=== PATIENT | female | born 1950 | race Caucasian/White ===

== ENCOUNTER 2017-12-12 13:15 | Day surgery (SDC) | payer OTHER | END 2017-12-12 22:46 | LOC: RAD 13:15 | PROVIDERS: Radiology Diagnostic Radiology | PROC: BR20YZZ Computerized Tomography (CT Scan) of Cervical Spine using Other Contrast (ICD-10-PCS; principal; 2017-12-12 15:00) | DX: M47.12 Other spondylosis with myelopathy, cervical region (principal); E11.9 Type 2 diabetes mellitus without complications; E07.9 Disorder of thyroid, unspecified; Z87.891 Personal history of nicotine dependence; M48.02 Spinal stenosis, cervical region | CPT/HCPCS: 62302; 72126; Q9967 ==

== ENCOUNTER 2019-03-27 11:21 | Emergency (ER) | payer OTHER ==
[~2019-03-27] VITALS: Ht 152.4 cm; Wt 105.2 kg
== END 2019-03-27 11:44 ==
LOC: ER 11:21
DX: Z77.098 Contact with and (suspected) exposure to other hazardous, chiefly nonmedicinal, chemicals (principal); Z87.891 Personal history of nicotine dependence; Z88.8 Allergy status to other drugs, medicaments and biological substances; Z88.5 Allergy status to narcotic agent
CPT/HCPCS: 99282

== ENCOUNTER 2019-09-25 18:02 | Inpatient (IN) | payer OTHER ==
[~2019-09-25] VITALS: Ht 152.4 cm; Wt 109.3 kg
[2019-09-25 18:57] LABS: Alanine Aminotransfer (ALT/SGP 27 U/L (12-78); Albumin, Blood 3.9 g/dL (3.4-5.0); Albumin/Globulin Ratio 1.1 (0.8-1.8); Alk Phos 50 U/L (50-136); Anion Gap 8 mmol/L (6-16); Aspartate Aminotrans (AST/SGOT 24 U/L (12-37); Bilirubin, Total 0.7 mg/dL (0.1-1.0); Blood Urea Nitrogen 27 mg/dL (8-24); Bun/Creatinine Ratio 13.2 (12.0-20.0); CO2, Blood 25 mmol/L (21-32); Calcium, Blood 9.9 mg/dL (8.5-10.1); Chloride, Blood 104 mmol/L (98-108); Creatinine, Blood 2.04 mg/dL (0.40-1.00); Globulin, Blood 3.6 g/dL (2.2-4.0); Glomerular Filtration Rate 26 (60-); Glucose, Blood 123 mg/dL (70-99); Potassium, Blood 3.7 mmol/L (3.5-5.5); Sodium, Blood 137 mmol/L (136-145); Total Protein, Blood 7.5 g/dL (6.4-8.2); Troponin I <0.015 ng/mL (0.000-0.040)
[2019-09-25 19:07] LABS: BASOPHILS ABSOLUTE AUTO 0.04 K/mm3 (0.00-0.23); BASOPHILS PERCENT AUTO 0 % (0-2); EOSINOPHILS ABSOLUTE AUTO 0.04 K/mm3 (0.00-0.68); EOSINOPHILS PERCENT AUTO 0 % (0-6); Hematocrit 42.5 % (33.0-51.0); Hemoglobin 13.8 g/dL (11.5-16.0); IMMATURE GRAN ABSOLUTE AUTO 0.08 K/mm3 (0.00-0.10); IMMATURE GRAN PERCENT AUTO 1 % (0-1); LYMPHOCYTES ABSOLUTE AUTO 0.83 K/mm3 (0.84-5.20); LYMPHOCYTES PERCENT AUTO 8 % (21-46); MONOCYTES PERCENT AUTO 1 % (4-13); Mean Corpuscular HGB 28.6 pg (26.0-34.0); Mean Corpuscular HGB Conc 32.5 g/dL (31.5-36.5); Mean Corpuscular Volume 88 fL (80-100); Mean Platelet Volume 10.5 fL (9.1-12.4); NEUTROPHILS ABSOLUTE AUTO 9.92 K/mm3 (1.96-9.15); NEUTROPHILS PERCENT AUTO 90 % (41-73); Platelet Count 191 K/mm3 (150-400); RDW Coefficient Variation 13.2 % (11.7-14.2); RDW Standard Deviation 42.3 fL (35.1-46.3); Red Blood Cell Count 4.83 M/mm3 (3.80-5.20); White Blood Cell Count 11.01 K/mm3 (4.00-11.30)
[2019-09-25 20:43] LABS: Source, Urine Clean Catch
[2019-09-25 20:45] LABS: Bilirubin, Urine Neg (Neg); Blood, Urine 4+ (Neg); Glucose Qualitative, Urine Neg (Neg); Ketones, Urine Neg (Neg); Leukocyte Esterase, Urine 1+ (Neg); Nitrite, Urine Neg (Neg); Protein, Urine 3+ (Neg); Urobilinogen, Urine NORM (Normal)
[2019-09-25 20:51] LABS: Appearance, Urine Hazy (Clear); Color, Urine Pale Yellow (P-Yellow)
[2019-09-25 20:52] LABS: White Blood Cells, Urine TNTC /hpf (0-5)
[2019-09-25 20:53] LABS: Bacteria Few /hpf; Squamous Epithelial Cells Few /hpf (Few)
[2019-09-25] MEDS ORDERED: LOSARTAN-HCTZ1 EAC2 PO (21:51)
[2019-09-25] MEDS ORDERED: FURO40 PO (21:51)
[2019-09-25] MEDS ORDERED: ASPI81CH PO (21:52)
[2019-09-25] MEDS ORDERED: POTCHL20ER PO (21:52)
[2019-09-25] MEDS ORDERED: Pravachol40 MG PO (21:52)
[2019-09-25] MEDS ORDERED: VITAMIN D32000 UNI3 PO (21:53)
[2019-09-25] MEDS ORDERED: Vitamin B-121000 MCG PO (21:53)
[2019-09-26] MEDS ORDERED: ZOLOFT50 MG PO (01:15)
[2019-09-26] MEDS ORDERED: INSULANPEN SC (01:17)
[2019-09-26] MEDS ORDERED: Humalog100 UNIT/1 SC (01:19)
[2019-09-26] MEDS ORDERED: LEVO-T125 MCG PO (01:24)
[2019-09-26 03:42] LABS: Hematocrit 36.3 % (33.0-51.0); Hemoglobin 12.1 g/dL (11.5-16.0); Mean Corpuscular HGB 28.8 pg (26.0-34.0); Mean Corpuscular HGB Conc 33.3 g/dL (31.5-36.5); Mean Corpuscular Volume 86 fL (80-100); Platelet Count 189 K/mm3 (150-400); RDW Coefficient Variation 13.2 % (11.7-14.2); RDW Standard Deviation 41.3 fL (35.1-46.3); White Blood Cell Count 19.59 K/mm3 (4.00-11.30)
[2019-09-26 03:59] LABS: Bilirubin, Total 0.4 mg/dL (0.1-1.0); Calcium, Blood 8.8 mg/dL (8.5-10.1); Creatinine, Blood 2.91 mg/dL (0.40-1.00); Potassium, Blood 3.4 mmol/L (3.5-5.5)
--- NOTE | 2019-09-26 04:50 | NUR ---
END OF SHIFT SUMMARY PT AXO AND TALKING WITH STAFF T/O THE NIGHT. CARDIZEM GTT CONTINUE TO INFUSE @ 10. VSS. PT'S LOWER BACK PAIN HAS BEEN AN ISSUE. PT AND THIS RN WALKED AROUNBD UNIT MULTIPLE TIMES, TRIED HEATING PAD, SITTING IN CHAIR, ETC. PT'S PAIN PRESENTS DEBILITATING TO PT. CALLED, PERCOCET ORDERED, POST MEDICATION ADMINISTRATION PT SLEPT SOUNDLY WITH BIPAP ON FOR ALMOST 4 HOURS. PT SNACKS ALOT T/O THE NIGHT AND STATES HE NORMALLY DOESN'T SLEEP FOR MORE THAN AN HOUIR OR SO AT A TIME. PT CONTINUES IN AFIB/FLUTTER. MANY DISCUSSIONS HAD REGARDING ETOH USE AND COMMUNITY PROGRAMS. PT ACCEPTING OF THIS. WILL CONTINUE TO MONITOR UNTIL SHIFT CHANGE.
[2019-09-26] MEDS ORDERED: CALC.25 PO (11:02)
[2019-09-26] MEDS ORDERED: GABA300 PO (11:03)
[2019-09-26] MEDS ORDERED: GLIP5 PO (11:07)
[2019-09-26 15:34] LABS: Bun/Creatinine Ratio 13.2 (12.0-20.0); Creatinine, Blood 2.5 mg/dL (0.40-1.00); Potassium, Blood 4.4 mmol/L (3.5-5.5)
--- NOTE | 2019-09-26 16:55 | NUR ---
SHIFT SUMMARY PT A&Ox4; CALM AND COOPERATIVE WITH CARE. PT UP IN CHAIR FOR MAJORITY OF SHIFT WITH 1 PERSON ASSIST. PT DENIES PAIN, SOB, CHEST PAIN/PRESSURE, NAUSEA AND DIZZINESS T/O SHIFT. PT STATES ON 2L O2 VIA NC THIS AM, TITRATED TO RA DURING SHIFT. PT RECEIVING NS AT 150. VSS. VSS. NO OTHER ACUTE CHANGES NOTED DURING SHIFT. WILL CONTINUE TO MONITOR UNIL REPORT GIVEN TO ONCOMING RN.
[2019-09-27 03:27] LABS: BASOPHILS ABSOLUTE AUTO 0.05 K/mm3 (0.00-0.23); BASOPHILS PERCENT AUTO 0 % (0-2); EOSINOPHILS ABSOLUTE AUTO 0.15 K/mm3 (0.00-0.68); EOSINOPHILS PERCENT AUTO 1 % (0-6); Hematocrit 32.5 % (33.0-51.0); Hemoglobin 10.9 g/dL (11.5-16.0); IMMATURE GRAN ABSOLUTE AUTO 0.24 K/mm3 (0.00-0.10); IMMATURE GRAN PERCENT AUTO 2 % (0-1); LYMPHOCYTES ABSOLUTE AUTO 0.63 K/mm3 (0.84-5.20); LYMPHOCYTES PERCENT AUTO 4 % (21-46); MONOCYTES ABSOLUTE AUTO 0.78 K/mm3 (0.16-1.47); MONOCYTES PERCENT AUTO 5 % (4-13); Mean Corpuscular HGB 28.9 pg (26.0-34.0); Mean Corpuscular HGB Conc 33.5 g/dL (31.5-36.5); Mean Corpuscular Volume 86 fL (80-100); Mean Platelet Volume 11.2 fL (9.1-12.4); NEUTROPHILS ABSOLUTE AUTO 13.14 K/mm3 (1.96-9.15); NEUTROPHILS PERCENT AUTO 88 % (41-73); Platelet Count 135 K/mm3 (150-400); RDW Coefficient Variation 13.7 % (11.7-14.2); RDW Standard Deviation 43.1 fL (35.1-46.3); Red Blood Cell Count 3.77 M/mm3 (3.80-5.20); White Blood Cell Count 14.99 K/mm3 (4.00-11.30)
[2019-09-27 03:51] LABS: Albumin, Blood 2.6 g/dL (3.4-5.0); Albumin/Globulin Ratio 0.9 (0.8-1.8); Bilirubin, Total 0.5 mg/dL (0.1-1.0); Bun/Creatinine Ratio 14.5 (12.0-20.0); Calcium, Blood 8.4 mg/dL (8.5-10.1); Creatinine, Blood 2.2 mg/dL (0.40-1.00); Potassium, Blood 3.9 mmol/L (3.5-5.5); Total Protein, Blood 5.6 g/dL (6.4-8.2)
--- NOTE | 2019-09-27 05:19 | NUR ---
END OF SHIFT SUMMARY NO ACUTE CHANGES THIS SHIFT. VSS. PAIN TREATED WITH FENTANYL, APPEARS TO BE SUCCESFUL IN HELPING. PT HAS WORN CPAP T/O THE NIGHT. HAS BEEN NUP TO THE BATHROOM A FEW TIMES. URINE LIGHT YELLOW. 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 WILL CONTINUE TO MONITOR UNTIL SHIFT CHANGE.
--- NOTE | 2019-09-27 13:07 | NUR ---
TRANSFER NOTE PT A&Ox4; CALM AND COOPERATIVE WITH CARE. PT RESTING IN BED DURING SHIFT, UP TO SBA TO BATHROOM. UP IN CHAIR FOR MEALS. PT REPORTS HEADACHE AND MILD L FLANK PAIN AT TIMES, DENIES NEEDS FOR MEDICATIONS. PT SOB WITH EXERTION, RA AT REST AND 2L O2 VIA NC WITH ACTIVITY; PT WEARS CPAP AT NOC WITH 2L BLEED IN. PT DENIES NASUEA AND DIZZINESS. PT RECEIVING IV FLUIDS AND IV LASIX. ADRENAL ULTRA SOUND COMPLETED THIS AM. VSS. NO OTHER ACUTE CHANGES NOTED DURING SHIFT. REPORT GIVEN TO AMY RAMIREZ ASSUMING CARE OF PT. PT TRANSFERED TO ROOM 330.
--- NOTE | 2019-09-27 19:16 | NUR ---
SHIFT SUMMARY: PATIENT XFR FROM PCU-01 THIS SHIFT. PT A&O; CALM AND COOPERATIVE WITH CARE. MEDICATED FOR MILLER PAIN PER EMAR. HX HTN; BP MEDS TO BE RESTARTED / IN AM. ADMIT FOR PYLENOPHRITIS; DR BROWN FOLLOWING; REHYDRATION CONTINUING. PT UP c SBA TO BATHROOM. IV ABX CONTINUING. REPORT GIVEN TO ONCOMING RN.
[2019-09-28 04:00] LABS: BASOPHILS ABSOLUTE AUTO 0.05 K/mm3 (0.00-0.23); BASOPHILS PERCENT AUTO 0 % (0-2); EOSINOPHILS ABSOLUTE AUTO 0.27 K/mm3 (0.00-0.68); EOSINOPHILS PERCENT AUTO 2 % (0-6); Hematocrit 34.1 % (33.0-51.0); Hemoglobin 11.2 g/dL (11.5-16.0); IMMATURE GRAN ABSOLUTE AUTO 0.14 K/mm3 (0.00-0.10); IMMATURE GRAN PERCENT AUTO 1 % (0-1); LYMPHOCYTES ABSOLUTE AUTO 1.09 K/mm3 (0.84-5.20); LYMPHOCYTES PERCENT AUTO 8 % (21-46); MONOCYTES ABSOLUTE AUTO 0.69 K/mm3 (0.16-1.47); MONOCYTES PERCENT AUTO 5 % (4-13); Mean Corpuscular HGB 28.1 pg (26.0-34.0); Mean Corpuscular HGB Conc 32.8 g/dL (31.5-36.5); Mean Corpuscular Volume 86 fL (80-100); Mean Platelet Volume 11.4 fL (9.1-12.4); NEUTROPHILS ABSOLUTE AUTO 10.92 K/mm3 (1.96-9.15); NEUTROPHILS PERCENT AUTO 83 % (41-73); Platelet Count 144 K/mm3 (150-400); RDW Coefficient Variation 13.4 % (11.7-14.2); RDW Standard Deviation 42.4 fL (35.1-46.3); Red Blood Cell Count 3.99 M/mm3 (3.80-5.20); White Blood Cell Count 13.16 K/mm3 (4.00-11.30)
[2019-09-28 04:25] LABS: Albumin, Blood 2.9 g/dL (3.4-5.0); Albumin/Globulin Ratio 0.8 (0.8-1.8); Bilirubin, Total 0.5 mg/dL (0.1-1.0); Bun/Creatinine Ratio 15.2 (12.0-20.0); Calcium, Blood 8.7 mg/dL (8.5-10.1); Creatinine, Blood 1.71 mg/dL (0.40-1.00); Globulin, Blood 3.5 g/dL (2.2-4.0); Potassium, Blood 3.7 mmol/L (3.5-5.5); Total Protein, Blood 6.4 g/dL (6.4-8.2)
--- NOTE | 2019-09-28 05:05 | NUR ---
SHIFT SUMMARY- PT. A&OX3, PLEASANT AND COOPERATIVE WITH CARE. APPEARED TO HAVE SLEPT WELL T/O THE SHIFT. NO APPARENT DISTRESS NOTED. PT. ON RA DURING THE DAY WITH THE USE OF CPAP AT NIGHT. DENIED ANY PAIN OR DISCOMFORT DURING THE NIGHT. CALL LIGHT WITHIN REACH AND SIDE RAILS UP X2. WILL CONT TO MONITOR.
[2019-09-28] MEDS ORDERED: AMLO5 PO (13:00)
[2019-09-28] MEDS ORDERED: CIPR500 PO (13:01)
[2019-09-28] MEDS ORDERED: TAMS.4ER PO (13:01)
--- NOTE | 2019-09-28 14:30 | NUR ---
PT DISCHARGED FROM THE UNIT. IV REMOVED, DISCHARGE INSTRUCTIONS REVIEWED. MEDICATIONS FAXED. PT LEFT UNIT VIA WHEELCHAIR. DAUGHTER TO DRIVE HOME
== END 2019-09-28 14:15 | disposition home or self-care (01) | DRG 690 ==
LOC: ER 18:02 → PCU 23:39 → MEDS 09-26 00:50 → PCU 09-26 00:50 → MEDS 09-27 12:30 → ENPENDDIS 09-28 11:27 → MEDS 09-28 14:15
PROVIDERS: Emergency Medicine; Internal Medicine; ADMIT Internal Medicine
DX: N13.6 Pyonephrosis (principal); N12 Tubulo-interstitial nephritis, not specified as acute or chronic; E11.22 Type 2 diabetes mellitus with diabetic chronic kidney disease; N18.3 Chronic kidney disease, stage 3 (moderate); I12.9 Hypertensive chronic kidney disease with stage 1 through stage 4 chronic kidney disease, or unspecified chronic kidney disease; E86.0 Dehydration; G47.33 Obstructive sleep apnea (adult) (pediatric); E78.5 Hyperlipidemia, unspecified; E66.9 Obesity, unspecified; Z68.39 Body mass index [BMI] 39.0-39.9, adult; Z79.82 Long term (current) use of aspirin; Z87.891 Personal history of nicotine dependence
CPT/HCPCS: 36415; 74176; 76770; 80048; 80053; 81001; 82947; 83690; 84484; 85025; 85027; 87077; 87086; 87186; 93005; 93010; 94660; 94762; 96361; 96365; 96375; 99285-25; A9270; A9270-GY; J0696; J1644; J1650; J1940; J2405; J3010; J7030

== ENCOUNTER → 2020-05-17 | Outpatient (CLI) | payer OTHER ==
[~2020-05-17] MED LIST: AMLO5 PO; ASPI81CH PO; CALC.25 PO; CIPR500 PO; FURO40 PO; GABA300 PO; GLIP5 PO; Humalog100 UNIT/1 SC; INSULANPEN SC; LEVO-T125 MCG PO; LOSARTAN-HCTZ1 EAC2 PO; POTCHL20ER PO; Pravachol40 MG PO; TAMS.4ER PO; VITAMIN D32000 UNI3 PO; Vitamin B-121000 MCG PO; ZOLOFT50 MG PO
== END | disposition home or self-care (01) ==
LOC: PLD 14:52 → LAB SHORT 14:52
DX: D36.10 Benign neoplasm of peripheral nerves and autonomic nervous system, unspecified (principal)
CPT/HCPCS: 88305

== ENCOUNTER 2020-12-23 12:32 | Day surgery (SDC) | payer OTHER | END 2020-12-23 14:53 | disposition home or self-care (01) | LOC: ORSCSDS 12:32 | PROC: 0DJD8ZZ Inspection of Lower Intestinal Tract, Via Natural or Artificial Opening Endoscopic (ICD-10-PCS; principal; 2020-12-23) | DX: Z12.11 Encounter for screening for malignant neoplasm of colon (principal); Z86.010 Personal history of colon polyps; Z83.71 Family history of colonic polyps; Z53.9 Procedure and treatment not carried out, unspecified reason; I10 Essential (primary) hypertension; G47.33 Obstructive sleep apnea (adult) (pediatric); E11.9 Type 2 diabetes mellitus without complications; E03.9 Hypothyroidism, unspecified; E66.01 Morbid (severe) obesity due to excess calories; Z68.41 Body mass index [BMI] 40.0-44.9, adult; E78.5 Hyperlipidemia, unspecified; N18.9 Chronic kidney disease, unspecified; Z79.4 Long term (current) use of insulin; Z79.899 Other long term (current) drug therapy; Z79.82 Long term (current) use of aspirin ==

== ENCOUNTER → 2024-10-01 | Outpatient (CLI) | payer OTHER ==
[~2024-10-01] MED LIST changes: +ADVAIR HFA 230-28 GM INH; +ALBU90OI INH; +FERRIMIN 150456 MG; +INSULANI SC; +LEVO-T150 MCG PO; +LOSARTAN-HCTZ1 EAC6 PO; +MONT10T PO; +NOVOLOG100 UNIT/2 SC; +PRAVASTATIN SOD40 MG PO; +SERT50 PO
== END ==
LOC: LAB 16:29 → LAB SHORT 16:29
DX: M79.671 Pain in right foot (principal)
CPT/HCPCS: 84550

== ENCOUNTER 2024-12-28 12:20 | Inpatient (IN) | payer OTHER ==
[~2024-12-28] VITALS: Ht 152.4 cm; Wt 99.7 kg
[~2024-12-28 12:20] MED LIST changes: -FERRIMIN 150456 MG; +FERRIMIN 150456 MG PO
[2024-12-28] MEDS ORDERED: Ondansetron 4 MG SoluTab SL ONE (13:15)
[2024-12-28 13:54] LABS: BASOPHILS ABSOLUTE AUTO 0.07 K/mm3 (0.00-0.23); BASOPHILS PERCENT AUTO 1 % (0-2); EOSINOPHILS ABSOLUTE AUTO 0.08 K/mm3 (0.00-0.68); EOSINOPHILS PERCENT AUTO 1 % (0-6); Hematocrit 41.2 % (33.0-51.0); Hemoglobin 14.3 g/dL (11.5-16.0); IMMATURE GRAN ABSOLUTE AUTO 0.13 K/mm3 (0.00-0.10); IMMATURE GRAN PERCENT AUTO 1 % (0-1); LYMPHOCYTES ABSOLUTE AUTO 2.05 K/mm3 (0.84-5.20); LYMPHOCYTES PERCENT AUTO 16 % (21-46); MONOCYTES ABSOLUTE AUTO 0.86 K/mm3 (0.16-1.47); MONOCYTES PERCENT AUTO 7 % (4-13); Mean Corpuscular HGB Conc 34.7 g/dL (31.5-36.5); Mean Corpuscular Volume 81 fL (80-100); NEUTROPHILS ABSOLUTE AUTO 9.39 K/mm3 (1.96-9.15); NEUTROPHILS PERCENT AUTO 75 % (41-73); NRBC ABSOLUTE 0.00 K/mm3 (0.00-0.02); NRBC Auto 0.0 /100 WBC (0.0-0.2); Platelet Count 257 K/mm3 (150-400); RDW Coefficient Variation 13.8 % (11.7-14.2); RDW Standard Deviation 40.2 fL (35.1-46.3)
[2024-12-28 14:25] LABS: Alanine Aminotransfer (ALT/SGP 19.0 U/L (12-78); Albumin, Blood 3.7 g/dL (3.4-5.0); Albumin/Globulin Ratio 0.9 (0.8-1.8); Anion Gap 8.0 mmol/L (3-11); Aspartate Aminotrans (AST/SGOT 18.0 U/L (12-37); Bilirubin, Total 0.5 mg/dL (0.1-1.0); Blood Urea Nitrogen 38.0 mg/dL (8-24); CO2, Blood 27.0 mmol/L (21-32); Calcium, Blood 10.4 mg/dL (8.5-10.1); Chloride, Blood 105.0 mmol/L (98-108); Creatinine, Blood 2.92 mg/dL (0.40-1.00); Globulin, Blood 3.9 g/dL (2.2-4.0); Glucose, Blood 186.0 mg/dL (70-99); Potassium, Blood 4.0 mmol/L (3.5-5.5); Sodium, Blood 136.0 mmol/L (136-145); Total Protein, Blood 7.6 g/dL (6.4-8.2)
[2024-12-28] MEDS ORDERED: NiCARdipine HCL 50 MG in NS 250 ML IV SCH ×2 (17:15→22:30)
[2024-12-28] MEDS ORDERED: Ondansetron HCl 2 MG / ML 2ML Vial IV PRN (22:10)
[2024-12-28] MEDS ORDERED: NiCARdipine HCL 25 MG/10 ML (2.5MG/ML) IV SCH (22:15)
[2024-12-28 23:00] VITALS: BP 176/57
[2024-12-28 23:15] VITALS: BP 155/61
[2024-12-28 23:30] VITALS: BP 162/62
[2024-12-29] VITALS (55 sets, daily range): BP systolic 130–178; BP diastolic 50–149
[2024-12-29 03:47] LABS: BASOPHILS ABSOLUTE AUTO 0.07 K/mm3 (0.00-0.23); BASOPHILS PERCENT AUTO 1 % (0-2); EOSINOPHILS ABSOLUTE AUTO 0.03 K/mm3 (0.00-0.68); EOSINOPHILS PERCENT AUTO 0 % (0-6); Hematocrit 41.6 % (33.0-51.0); Hemoglobin 14.3 g/dL (11.5-16.0); IMMATURE GRAN ABSOLUTE AUTO 0.15 K/mm3 (0.00-0.10); IMMATURE GRAN PERCENT AUTO 1 % (0-1); LYMPHOCYTES ABSOLUTE AUTO 1.92 K/mm3 (0.84-5.20); LYMPHOCYTES PERCENT AUTO 13 % (21-46); MONOCYTES ABSOLUTE AUTO 1.18 K/mm3 (0.16-1.47); MONOCYTES PERCENT AUTO 8 % (4-13); Mean Corpuscular HGB Conc 34.4 g/dL (31.5-36.5); Mean Corpuscular Volume 81 fL (80-100); NEUTROPHILS ABSOLUTE AUTO 11.56 K/mm3 (1.96-9.15); NEUTROPHILS PERCENT AUTO 78 % (41-73); NRBC ABSOLUTE 0.00 K/mm3 (0.00-0.02); NRBC Auto 0.0 /100 WBC (0.0-0.2); Platelet Count 276 K/mm3 (150-400); RDW Coefficient Variation 13.9 % (11.7-14.2); RDW Standard Deviation 40.9 fL (35.1-46.3)
[2024-12-29 04:15] LABS: Alanine Aminotransfer (ALT/SGP 19.0 U/L (12-78); Albumin, Blood 3.6 g/dL (3.4-5.0); Albumin/Globulin Ratio 1.0 (0.8-1.8); Anion Gap 7.0 mmol/L (3-11); Aspartate Aminotrans (AST/SGOT 17.0 U/L (12-37); Bilirubin, Total 0.4 mg/dL (0.1-1.0); Blood Urea Nitrogen 39.0 mg/dL (8-24); CO2, Blood 28.0 mmol/L (21-32); Calcium, Blood 9.4 mg/dL (8.5-10.1); Chloride, Blood 103.0 mmol/L (98-108); Creatinine, Blood 3.01 mg/dL (0.40-1.00); Globulin, Blood 3.7 g/dL (2.2-4.0); Glucose, Blood 200.0 mg/dL (70-99); Magnesium, Blood 2.4 mg/dL (1.6-2.4); Phosphorus, Blood 3.1 mg/dL (2.5-4.9); Potassium, Blood 4.1 mmol/L (3.5-5.5); Sodium, Blood 134.0 mmol/L (136-145); Thyroid Stimulating Hormone 32.2 uIU/mL (0.360-4.800); Total Protein, Blood 7.3 g/dL (6.4-8.2)
[2024-12-29] MEDS ORDERED: Levothyroxine Sodium 0.15 MG Tab PO SCH (06:00)
[2024-12-29] MEDS ORDERED: Insulin Human Lispro 100 Units/ML 3ML Syringe SC SCH ×2 (07:30→08:30)
--- NOTE | 2024-12-29 07:40 | NUR ---
24HR URINE COLLECTION STARTED.
[2024-12-29] MEDS ORDERED: Heparin Sodium,Porcine 5,000 UNIT/0.5 ML SDV SC SCH (09:00)
[2024-12-29] MEDS ORDERED: Insulin Glargine-Yfgn 100 Unit/mL 3 ML SYR SC SCH (09:00)
[2024-12-29 09:16] LABS: Thyroid Stimulating Hormone 42.7 uIU/mL (0.360-4.800); Uric Acid, Blood 7.8 mg/dL (2.6-6.0)
--- NOTE | 2024-12-29 15:38 | NUR ---
SHIFT SUMMARY NEURO: ALERT AND ORIENTED X 3-4. DID NOT UTILIZE CALL LIGHT TODAY. FOLLOW COMMANDS. DROWSY BUT AROUSABLE. CARDIAC: SINUS TACHYCARDIA HR 110S. HYPOTENSIVE THIS AM. DR BILLINGSLEY NOTIFIED. NEW ORDERS RECIEVED FOR MIDODRINE. INSTUCTED MAP >60 OK UNTIL MIDODRINE IN EFFECT. SBP CURRENTLY 110S, DBP 50S. PULM: LUNGS CLEAR AND DIM IN BILATERAL POSTERIOR BASES. +SNORING WHILE SLEEPING BUT NO NOTED APNEA OR DESATS. SPO2 >92% ON RA. DENIES ANY COUGH. GI: HYPERTONIC BOWEL TONES, TENDER ABDOMEN TO PALPATION. DENIES ANY NAUSEA BUT STATES THAT HER STOMACH DOESNT FEEL RIGHT. +CONSTIPATION, BOWEL REGIMEN STARTED THIS AM WITH PO MEDS. : URINARY RETENTION, FERRO IN PLACE. IRRIGATED Q 2-4HR TODAY. URINE IS CREAMY WHITE COLOR AND THICK CAUSING TUBE TO BECOME OBSTRUCTED. DRAINING APPROPRIATELY AFTER FLUSHED. BLADDER SCAN DONE AT 1200 840ML. IRRIGATED CATHETHER - 800ML OUT. CALLED TO NOTIFY DR BILLINGSLEY. SKIN: SELINA-AREA, LABIA, GROIN FOLDS AND GLUTEAL CLEFT AREAS APPEAR DENUDED AND BRIGHT RED. CURRENLTY APPLYING BARRIER CREAM, AREAS ARE BLANCHABLE. CALLED TO DISCUSS TX WITH DR BILLINGSLEY. PT NICARDIPINE STOPPED FOR APPROX 45MIN TODAY PT RESTARTED AT 2.5MG/HR. SBP 150-160S. DENIES ANY CHEST PAIN, NAUSEA OR DIZZINESS TODAY. PT IN CONTACT WITH DAUGHTERS AND THROUGH OUT THE DAY. SHE IS THE SOLE CAREGIVER TO HER , FAMILY IS AT THEIR HOME ASSISTING WITH HIS CARE.
--- NOTE | 2024-12-29 18:18 | NUR ---
SHIFT SUMMARY NEURO: AWAKE AND ALERT X4. CALLS APPROPRIATELY AND ABLE TO MAKE HER NEEDS KNOWN. WEARS GLASSESS. CARDIAC: SBP 150-160S. ON NICARDAPINE GTT 2.5ML/HR. GTT STOPPED FOR APPORX 45MIN BUT SBP INCREASED TO ALMOST 170S. SINUS RHYTHM HR 70-80S. DENIES ANY CHEST PAIN, HEADACHE OR DIZZINESS TODAY. PULM: COARSE LLL, OTHERWISE CLEAR TO AUSCULATION. GI: ABDOMEN IS SOFT/NON TENDER WITH NORMOACTIVE BOWEL TONES. : PUREWICK IN PLACE, STARTED 24HR URINE COLLECTION AT 7:40. ON ICE IN PT ROOM. SKIN: INTACT. PT IN CONTACT WITH FAMILY MEMBERS TODAY, DAUGHTERS ASSISTING IN CARING HER HER SPOUSE AT THIS TIME SHE IS TYPICALLY HIS SOLE CAREGIVER. PT DECLINED BED BATH/LINEN CHANGE THIS AFTERNOON.
--- NOTE | 2024-12-29 18:33 | NUR ---
Pt. is awake in bed and welcomes my visit. Pt. is p[leasant. Facilitated a life review and Pt. verbalized how her has Parkinsons disease, and that she has family at the house carign for him. Pt. is a woman of jimmy and matters of jimmy and belief are considered. Pt. displayed evidence of being engaged, aware, and motivated. Prayed for the Pt. Pt. verbalized gratitude for the spiritual care visit.
[2024-12-30] VITALS (52 sets, daily range): BP systolic 104–183; BP diastolic 45–108
[2024-12-30 03:55] LABS: BASOPHILS ABSOLUTE AUTO 0.10 K/mm3 (0.00-0.23); BASOPHILS PERCENT AUTO 1 % (0-2); EOSINOPHILS ABSOLUTE AUTO 0.25 K/mm3 (0.00-0.68); EOSINOPHILS PERCENT AUTO 2 % (0-6); Hematocrit 36.2 % (33.0-51.0); Hemoglobin 12.2 g/dL (11.5-16.0); IMMATURE GRAN ABSOLUTE AUTO 0.14 K/mm3 (0.00-0.10); IMMATURE GRAN PERCENT AUTO 1 % (0-1); LYMPHOCYTES ABSOLUTE AUTO 2.73 K/mm3 (0.84-5.20); LYMPHOCYTES PERCENT AUTO 20 % (21-46); MONOCYTES ABSOLUTE AUTO 1.24 K/mm3 (0.16-1.47); MONOCYTES PERCENT AUTO 9 % (4-13); Mean Corpuscular HGB Conc 33.7 g/dL (31.5-36.5); Mean Corpuscular Volume 84 fL (80-100); NEUTROPHILS ABSOLUTE AUTO 9.10 K/mm3 (1.96-9.15); NEUTROPHILS PERCENT AUTO 67 % (41-73); NRBC ABSOLUTE 0.00 K/mm3 (0.00-0.02); NRBC Auto 0.0 /100 WBC (0.0-0.2); Platelet Count 255 K/mm3 (150-400); RDW Coefficient Variation 13.9 % (11.7-14.2); RDW Standard Deviation 42.5 fL (35.1-46.3)
[2024-12-30] MEDS ORDERED: NS 1,000 ML IV SCH ×2 (05:45→07:55)
[2024-12-30] MEDS ORDERED: Levothyroxine Sodium 0.175 MG TAB PO SCH (06:00)
--- NOTE | 2024-12-30 06:04 | NUR ---
SHIFT SUMMARY NO ACUTE CHANGES THIS SHIFT, ALERT AND ORIENTED X4, FOLLOWS COMMANDS, ABLE TO MAKE NEEDS KNOWN, SR 60-70s, SBP 150-160s MAINTAINED ON NICARDIPINE GTT PER EMAR, TMAX 99.5F, RESP EVEN AND UNLABORED ON 2LPM NC WHILE AWAKE AND PLACE ON CPAP AT HS WITH SPO2 >92%, PUREWICK IN PLACE AND PATENT, 24 HOUR COLLECTION CONTINUED THIS SHIFT WITH PT VOIDING 300 ML CLEAR YELLOW URINE, DR BROWN AT BEDSIDE AT 0530 WITH NEW ORDERS RECEIVED AND NOTIFIED OF URINE OUTPUT THIS SHIFT, PT DENIES CP OR SOB, SIDE RAILS UP X2, BED IN LOW POSITION, CALL LIGHT IN REACH
[2024-12-30 07:42] LABS: Albumin, Blood 3.0 g/dL (3.4-5.0); Anion Gap 10 mmol/L (3-11); Blood Urea Nitrogen 53 mg/dL (8-24); CO2, Blood 26 mmol/L (21-32); Calcium, Blood 9.1 mg/dL (8.5-10.1); Chloride, Blood 101 mmol/L (98-108); Creatinine, Blood 4.48 mg/dL (0.40-1.00); Glucose, Blood 95 mg/dL (70-99); Phosphorus, Blood 4.9 mg/dL (2.5-4.9); Potassium, Blood 4.1 mmol/L (3.5-5.5); Sodium, Blood 133 mmol/L (136-145)
[2024-12-30 09:16] LABS: Protein, Urine Quantitative 580.9 mg/dL (0.0-11.9)
--- NOTE | 2024-12-30 11:00 | NUR ---
AM NOTE: THIS RN ASSUMED CARE OF PT AT APPROX 0700, BEDSIDE REPORT TAKEN. PT A/OX4, ABLE TO MAKE NEEDS KNOWN TO STAFF. HR 50-60'S, SINUS RHYTHM/SB ON MONITOR. SBP 130-180'S, NICARDIPINE GTT OFF PER PARAMETERS TO KEEP SBP <190 & VERBAL ORDER FROM DR. BILLINGSLEY. PT DENIES CHEST PAIN/PRESSURE/HEADACHE/BLURRED VISION. PT TRANSITIONED FROM CPAP THIS AM TO 2L VIA NC THEN TO RA. SPO2 >90% ON RA, RESPIRATIONS EVEN & UNLABORED. AFEBRILE. 24HR URINE COMPLETED. DR. BROWN W/ ORDERS FOR IR CONSULT, DR. SELLERS NOTIFIED BY THIS RN. PUREWICK IN PLACE FOR I&O'S. BED BATH COMPLETED, PT UP TO CHAIR W/ LIFT ASSIST. TOLERATING PO INTAKE WELL. C/O PAIN/CRAMPING TO LOWER EXTREMITIES, HEATING PAD PROVIDED W/ REPORTED RELIEF. CALL LIGHT IN REACH.
--- NOTE | 2024-12-30 11:02 | NUR ---
Pt. is awake in a recliner when she welcomes my visit. Pt. is pleasant. Facilitated an update. Pt. verbalized that she is not aware of her progress, but displayed evidence of trust and confidence. Some pastoral care is given as is prayer. Pt. verbalized gratitude for the spiritual care visit.
--- NOTE | 2024-12-30 13:27 | NUR ---
UPDATE: DR. SELLERS TO BEDSIDE THIS AFTERNOON. ORDERS FOR PT TO BE NPO AT THIS TIME, PLAN TO GO TO [facility] LATER THIS AFTERNOON. CURRENT SBP 160'S, PT REMAINS ASYMPTOMATIC W/ THIS.
[2024-12-30] MEDS ORDERED: NS 250 ML IV ONE (16:38)
[2024-12-30] MEDS ORDERED: Verapamil HCL 2.5 MG/ML 2ML Injection ONE (16:38)
[2024-12-30] MEDS ORDERED: NS 100 ML IV ONE (16:38)
[2024-12-30] MEDS ORDERED: Nitroglycerin 2 MG/20 ML BTL ONE (16:39)
[2024-12-30] MEDS ORDERED: Heparin Sodium 1000 Units/ML 10ML MDV ONE ×2 (16:39→17:42)
[2024-12-30] MEDS ORDERED: NS 1,000 ML IV ONE ×2 (16:39→17:05)
[2024-12-30] MEDS ORDERED: Midazolam HCl 1MG / ML 2ML Vial ONE ×2 (17:05→18:21)
[2024-12-30] MEDS ORDERED: FentaNYL Citrate 50 MCG/ML 2 ML Injection ONE ×2 (17:05→18:21)
--- NOTE | 2024-12-30 18:12 | NUR ---
END OF SHIFT NOTE: PT TO SLOT ROUTER AT APPROX 1710 FOR IR PROCEDURE. NO ACUTE EVENTS THIS SHIFT. PT A/OX4, ABLE TO COMMUNICATE NEEDS. HR 50-70'S, SINUS RHYTHM ON MONITOR. SBP UP TO 180'S THIS SHIFT, NICARDIPINE REMAINS OFF PER SBP GOAL <190. PT DENIES CHEST PAIN/PRESSURE. SPO2 >90% ON ROOM AIR, DENIES SOB. PW DRAINING YELLOW URINE TO SUCTION. NO BM'S. TOLERATING PO INTAKE PRIOR TO NPO STATUS FOR PROCEDURE. NS INFUSING AT 75ML/HR. UP IN CHAIR FOR MAJORITY OF SHIFT. PT HAD FAMILY MEMBERS VISITING THIS AFTERNOON; PT REMAINS IN SLOT ROUTER AT THIS TIME.
[2024-12-31] VITALS (20 sets, daily range): BP systolic 90–202; BP diastolic 49–81
[2024-12-31 03:31] LABS: Hematocrit 32.1 % (33.0-51.0); Hemoglobin 10.8 g/dL (11.5-16.0)
[2024-12-31 03:54] LABS: Albumin, Blood 2.6 g/dL (3.4-5.0); Anion Gap 11 mmol/L (3-11); Blood Urea Nitrogen 64 mg/dL (8-24); CHOL/HDL RATIO 3.7; CO2, Blood 24 mmol/L (21-32); Calcium, Blood 7.9 mg/dL (8.5-10.1); Chloride, Blood 102 mmol/L (98-108); Cholesterol 177 mg/dL (50-200); Creatinine, Blood 6.24 mg/dL (0.40-1.00); Glucose, Blood 104 mg/dL (70-99); HDL Cholesterol 48 mg/dL (>39); LDL/HDL RATIO 1.5; Low Density Lipoprotein Chol 73 mg/dL (0-110); Magnesium, Blood 2.2 mg/dL (1.6-2.4); Phosphorus, Blood 7.0 mg/dL (2.5-4.9); Potassium, Blood 5.3 mmol/L (3.5-5.5); Sodium, Blood 132 mmol/L (136-145); Triglycerides 281 mg/dL (30-160); Very Low Density Lipoprot Chol 56 mg/dL (6-32)
[2024-12-31 12:43] LABS: Albumin, Blood 2.8 g/dL (3.4-5.0); Anion Gap 11 mmol/L (3-11); Blood Urea Nitrogen 69 mg/dL (8-24); CO2, Blood 23 mmol/L (21-32); Calcium, Blood 8.4 mg/dL (8.5-10.1); Chloride, Blood 102 mmol/L (98-108); Creatinine, Blood 6.78 mg/dL (0.40-1.00); Glucose, Blood 106 mg/dL (70-99); Phosphorus, Blood 7.1 mg/dL (2.5-4.9); Potassium, Blood 5.0 mmol/L (3.5-5.5); Sodium, Blood 131 mmol/L (136-145)
[2024-12-31 15:43] LABS: Creatinine, Blood 7.02 mg/dL (0.40-1.00)
--- NOTE | 2024-12-31 18:32 | NUR ---
PCU orders entered today for patient. Patient receptive and hapy to work with PT/ot today. Able to get OOB to chair under own power with minimal help. Patient's Creatine increased today prompting IR consult by Dr Muro for HD line placement. Patient updated on consult by RN.
[2025-01-01] VITALS (32 sets, daily range): BP systolic 76–162; BP diastolic 51–132
[2025-01-01 03:58] LABS: BASOPHILS ABSOLUTE AUTO 0.05 K/mm3 (0.00-0.23); BASOPHILS PERCENT AUTO 1 % (0-2); EOSINOPHILS ABSOLUTE AUTO 0.33 K/mm3 (0.00-0.68); EOSINOPHILS PERCENT AUTO 3 % (0-6); Hematocrit 31.3 % (33.0-51.0); Hemoglobin 10.7 g/dL (11.5-16.0); IMMATURE GRAN ABSOLUTE AUTO 0.11 K/mm3 (0.00-0.10); IMMATURE GRAN PERCENT AUTO 1 % (0-1); LYMPHOCYTES ABSOLUTE AUTO 1.36 K/mm3 (0.84-5.20); LYMPHOCYTES PERCENT AUTO 13 % (21-46); MONOCYTES ABSOLUTE AUTO 1.12 K/mm3 (0.16-1.47); MONOCYTES PERCENT AUTO 11 % (4-13); Mean Corpuscular HGB Conc 34.2 g/dL (31.5-36.5); Mean Corpuscular Volume 82 fL (80-100); NEUTROPHILS ABSOLUTE AUTO 7.45 K/mm3 (1.96-9.15); NEUTROPHILS PERCENT AUTO 71 % (41-73); NRBC ABSOLUTE 0.00 K/mm3 (0.00-0.02); NRBC Auto 0.0 /100 WBC (0.0-0.2); Platelet Count 179 K/mm3 (150-400); RDW Coefficient Variation 14.3 % (11.7-14.2); RDW Standard Deviation 43.3 fL (35.1-46.3)
[2025-01-01 04:33] LABS: Magnesium, Blood 2.4 mg/dL (1.6-2.4)
[2025-01-01 05:00] LABS: Albumin, Blood 2.7 g/dL (3.4-5.0); Anion Gap 16 mmol/L (3-11); Blood Urea Nitrogen 77 mg/dL (8-24); CO2, Blood 21 mmol/L (21-32); Calcium, Blood 8.3 mg/dL (8.5-10.1); Chloride, Blood 100 mmol/L (98-108); Creatinine, Blood 7.71 mg/dL (0.40-1.00); Glucose, Blood 46 mg/dL (70-99); Phosphorus, Blood 8.0 mg/dL (2.5-4.9); Potassium, Blood 4.4 mmol/L (3.5-5.5); Sodium, Blood 133 mmol/L (136-145)
--- NOTE | 2025-01-01 05:55 | NUR ---
SHIFT SUMMARY PT A/OX4, MAKES NEEDS KNOWN. ON ROOM AIR, SATS > 94%. WEARS CPAP AT NIGHT. REMAINED SINUS LONG T/O NIGHT WITH HR 40-50'S. BP STABLE. PUREWICK IN PLACE. PT GLUCOSE THIS AM CAME BACK cL AT 46, ORANGE JUICE AND AMP OF D50 GIVEN. PT WAS ASYMPTOMATIC. CALL LIGHT IN REACH.
--- NOTE | 2025-01-01 09:13 | NUR ---
BEDSIDE ORDERS SPOKE WITH MD MALINI AND ORDERED TO STILL GIVE PO BP MEDS THIS MORNING IF PROCEDURE WOULD BE AFTER NOON. SPOKE WITH MD SABINE AT BEDSIDE AND ORDERED TO HOLD BLOOD THINNERS, OK TO GIVE OTHER MEDS, AND TOLD PROCEDURE WOULD BE THIS AFTERNOON. CONCEDNTS DONE AT BEDSIDE WITH ALL QUESTIONS ANSWERED BY MD SABINE.
[2025-01-01 10:29] LABS: ALDOSTERONE 23.4 ng/dL; ALDOSTERONE/RENINACTIVITY CALC 18.0 ratio (<=25.0); RENIN ACTIVITY 1.3 ng/mL/hr
[2025-01-01] MEDS ORDERED: Heparin Sodium 1000 Units/ML 10ML MDV ONE (10:29)
[2025-01-01] MEDS ORDERED: NS 250 ML IV ONE (10:29)
[2025-01-01] MEDS ORDERED: Midazolam HCl 1MG / ML 2ML Vial ONE (10:56)
[2025-01-01] MEDS ORDERED: NS 500 ML IV ONE (10:56)
[2025-01-01] MEDS ORDERED: FentaNYL Citrate 50 MCG/ML 2 ML Injection ONE (10:56)
[2025-01-01] MEDS ORDERED: POTA10T PO (12:53)
[2025-01-01] MEDS ORDERED: FURO40 PO (12:53)
[2025-01-01] MEDS ORDERED: LOSARTAN POTAS100 M1 PO (12:53)
[2025-01-01] MEDS ORDERED: FentaNYL Citrate 50 MCG/ML 2 ML Injection IV PRN (16:10)
[2025-01-02] VITALS (16 sets, daily range): BP systolic 95–191; BP diastolic 52–110
[2025-01-02 02:35] LABS: CREATININE,URINE - PER 24H 576 mg/d (500-1400); CREATININE,URINE - PER VOLUME 96 mg/dL; HOURS COLLECTED 24 hr; METANEPHRINE,UR - RATIO TO CRT 52 ug/g CRT (0-300); METANEPHRINE,URINE - PER 24H 30 ug/d (36-229); METANEPHRINE,URN - PER VOLUME 50 ug/L; NORMETANEPHRINE,U - PER VOLUME 552 ug/L; NORMETANEPHRINE,URN - PER 24H 331 ug/d (95-650); NORMETANEPHRINE,URN/CRT RATIO 575 ug/g CRT (0-400)
[2025-01-02 04:02] LABS: Hematocrit 32.0 % (33.0-51.0); Hemoglobin 10.6 g/dL (11.5-16.0)
[2025-01-02 04:19] LABS: Magnesium, Blood 2.3 mg/dL (1.6-2.4)
[2025-01-02 04:20] LABS: Albumin, Blood 2.6 g/dL (3.4-5.0); Anion Gap 11 mmol/L (3-11); Blood Urea Nitrogen 53 mg/dL (8-24); CO2, Blood 27 mmol/L (21-32); Calcium, Blood 8.2 mg/dL (8.5-10.1); Chloride, Blood 98 mmol/L (98-108); Creatinine, Blood 6.44 mg/dL (0.40-1.00); Glucose, Blood 113 mg/dL (70-99); Phosphorus, Blood 6.6 mg/dL (2.5-4.9); Potassium, Blood 4.3 mmol/L (3.5-5.5); Sodium, Blood 132 mmol/L (136-145)
--- NOTE | 2025-01-02 07:36 | NUR ---
ASSUMPITION NOTE: THIS RN TO ASSUME CARE OF PT. PATIENT IS SLEEPING IN BED, EASILY AROUSABLE TO VERBAL STIMULI. PT TO GET DIALYSIS THIS MORNING. VITAL SIGNS STABLE. PATIENT DENIED ANY CHEST PAIN/PRESURE OR FEELING SHORT OF BREATH. WANTING BREAKFAST PRIOR TO LEAVING FOR DIALYSIS. HAS CALL LIGHT WITHIN REACH, BED IN LOWEST POSITION & STATING NOTHING ELSE IS NEEDED AT THIS TIME.
[2025-01-02 09:06] LABS: CORTISOL, FREE BY ED/LC-MS/MS 1.87 ug/dL
--- NOTE | 2025-01-02 10:50 | NUR ---
ARRIVAL FROM DIALYSIS: PATIENT ARRIVES BACK TO UNIT FROM DIALYSIS. VITAL SIGNS STABLE, PT HAS CALL LIGHT WITHIN REACH, BED IN LOWEST POSITION & ASKING FOR A SNACK.
--- NOTE | 2025-01-02 10:57 | NUR ---
MD ROUNDED: STEPHANIE ROUNDED ON PT AFTER FINISHING DIALYSIS. ORDERED STAT URIC ACID PT TOLD MD SHE HAS GOUT, WILL LOOK AT LABS AND START MEDS IF NEEDED. GAVE VERBAL ORDER FOR BUMEX DAILY. STATED SHE WILL GET DIALYIZED TOMORROW MOST LIKELY WELL.
--- NOTE | 2025-01-02 11:58 | NUR ---
CALLED: THIS RN CALLED MD BROWN REGARDING HER URIC ACID RESULTS HE WANTED TO BE NOTIFIED. STATED TO TELL PT WE WILL CONTINUE TO MONITOR THOSE LABS SHE HAS NO SWELLING OR REDNESS IN HER TOES
--- NOTE | 2025-01-02 13:27 | NUR ---
MD CALLED: THIS RN CALLED MD REGARDING PT'S INSULIN DOSES BEING SCHEDULED BEFORE MEALS THREE TIMES A DAY BUT PT ONLY RECEING SMALL AMOUNTS OF FAST ACTING BASED OFF AC BLOOD SUGARS. MD GAVE VERBAL ORDER TO CUT HER LONG ACTING DOSE IN HALF TO 20UNITS AND DISCONTINUE HER BEFORE MEAL DOSE AND USE ONLY LOW SLIDING SCALE QWIK PEN.
--- NOTE | 2025-01-02 18:13 | NUR ---
SHIFT SUMMARY: PATIENT IS ALERT AND ORIETNED X4 & COOPERATIVE WITH HER CARE, IS ABLE TO MAKE NEEDS KNOW & USES CALL LIGHT APPROPRIATELY. PATIENT SATTING >92% ON ROOM AIR. ON TELE SHOWING SINUS RYTHM. PATIENT GOT DIALIZED TODAY AND IS SCHEDLED TO HAVE DIALYSIS TOMORROR WELL. WAS GIVEN INSULIIN THROUGHOUT THE SHIFT PER EMAR, BASAL DOSE WAS DISCONTINUED BLOOD SUGARS TODAY WERE IN 150'S,SEE EMAR FOR CHANGES AND PREVIOUS NOTES. PLAN WILL BE LOOKING AT DISCHARGE WITHIN A COUPLE OF DAYS. FAMILY CAME TO BEDSIDE THROUGHOUT SHIFT. PT IS A 1 PERSON ASSIST WITH A FRONT WHEELED WALKER. HAS AN ARM BOARD ON THE LEFT WRIST FROM THE ACCESS SITE USED PREVIOUSLY. PT HAS CALL LIGHT WITHIN REACH, BED IN LOWEST POSITION & STATING NOTHING ELSE IS NEEDED AT THIS TIME.
[2025-01-03] VITALS (21 sets, daily range): BP systolic 102–176; BP diastolic 55–90
[2025-01-03 03:10] LABS: CREATININE, URINE - PER 24H 576 mg/d (500-1400); CREATININE, URINE - PER VOLUME 96 mg/dL; HOURS COLLECTED 24 hr; VANILLYLMANDELIC ACID -PER 24H 4.6 mg/d (0.0-7.0); VANILLYLMANDELIC ACID -PER VOL 7.7 mg/L; VANILLYLMANDELIC ACID -RAT CRT 8 mg/gCR (0-6)
[2025-01-03 04:12] LABS: BASOPHILS ABSOLUTE AUTO 0.08 K/mm3 (0.00-0.23); BASOPHILS PERCENT AUTO 1 % (0-2); EOSINOPHILS ABSOLUTE AUTO 0.29 K/mm3 (0.00-0.68); EOSINOPHILS PERCENT AUTO 4 % (0-6); Hematocrit 29.8 % (33.0-51.0); Hemoglobin 9.9 g/dL (11.5-16.0); IMMATURE GRAN ABSOLUTE AUTO 0.13 K/mm3 (0.00-0.10); IMMATURE GRAN PERCENT AUTO 2 % (0-1); LYMPHOCYTES ABSOLUTE AUTO 1.30 K/mm3 (0.84-5.20); LYMPHOCYTES PERCENT AUTO 16 % (21-46); MONOCYTES ABSOLUTE AUTO 1.01 K/mm3 (0.16-1.47); MONOCYTES PERCENT AUTO 12 % (4-13); Mean Corpuscular HGB Conc 33.2 g/dL (31.5-36.5); Mean Corpuscular Volume 84 fL (80-100); NEUTROPHILS ABSOLUTE AUTO 5.57 K/mm3 (1.96-9.15); NEUTROPHILS PERCENT AUTO 66 % (41-73); NRBC ABSOLUTE 0.00 K/mm3 (0.00-0.02); NRBC Auto 0.0 /100 WBC (0.0-0.2); Platelet Count 191 K/mm3 (150-400); RDW Coefficient Variation 14.4 % (11.7-14.2); RDW Standard Deviation 43.8 fL (35.1-46.3)
[2025-01-03 04:29] LABS: Magnesium, Blood 2.1 mg/dL (1.6-2.4)
[2025-01-03 04:30] LABS: Albumin, Blood 2.6 g/dL (3.4-5.0); Anion Gap 9 mmol/L (3-11); Blood Urea Nitrogen 44 mg/dL (8-24); CO2, Blood 29 mmol/L (21-32); Calcium, Blood 8.2 mg/dL (8.5-10.1); Chloride, Blood 96 mmol/L (98-108); Creatinine, Blood 5.82 mg/dL (0.40-1.00); Glucose, Blood 145 mg/dL (70-99); Phosphorus, Blood 7.0 mg/dL (2.5-4.9); Potassium, Blood 3.9 mmol/L (3.5-5.5); Sodium, Blood 130 mmol/L (136-145)
--- NOTE | 2025-01-03 06:08 | NUR ---
NOC SHIFT SUMMARY PT IS A+O X4 ABLE TO MAKE NEEDS KNOW, USES HER CALL LIGHT. KIND AND COOPERATIVE WITH CARES. PATIENT REMAINS RA SATTING >93%. DENIES SOB BREATHING EVEN AND UNLABORED. TELE IN PLACE SHOWING SR-SB. PT DENIES CHEST PAIN/PRESSURE. PLAN FOR DIALYSIS TODAY. PT REPORTED HAVING SOME STOMACH DISCOMFT AND WAS MEDICATED FOR NAUSEA X1. THIS HAS SINCE RESOLVED AND SHE WAS ABLE TO EVITA PO INTAKE. PT HAS NOT HAD A BM THIS SHIFT. DENIES NEEDS AT THIS TIME, BED IN LOW, CALL LIGHT IN REACH. WILL CONTINUE WITH PLAN OF CARE AND REPORT TO ONCOMING RN.
--- NOTE | 2025-01-03 08:35 | NUR ---
PATIENT CURRENTLY OUT OF ROOM FOR DIALYSIS
[2025-01-03] MEDS ORDERED: Bumetanide 0.25 MG/ML 10ML Vial IV SCH (09:00)
[2025-01-03] MEDS ORDERED: Insulin Glargine-Yfgn 100 Unit/mL 3 ML SYR SC SCH (09:00)
--- NOTE | 2025-01-03 11:20 | NUR ---
PATIENT BACK IN ROOM FOLLOWING DIALYSIS
--- NOTE | 2025-01-03 12:53 | NUR ---
MORNING NOTE THIS RN ASSUMED CARE AT APPROX 0715. PATIENT ALERT AND ORIENTED X4. COMMUNICATES NEEDS EFFECTIVELY. IS NOW MEDICAL STATUS W/O TELEMETRY. TELEMETRY SHOWING SINUS LONG PRIOR TO REMOVAL. SBP 160s-170s - MANAGING PER EMAR. HD COMPLETED THIS MORNING. DENIES CHEST PAIN, PRESSURE. ON ROOM AIR, SATs >90%. REPORTED HEADACHE POST HD - PO TYLENOL ADMINISTERED PER EMAR W/ RELIEF. PW IN PLACE FOR INCONTINENCE - DRAINING YELLOW URINE TO SUCTION. AMBULATING W/ 1P ASSIST - CURRENTLY UP IN CHAIR. BEDBATH OFFERED - DECLINED AT THIS TIME. CALL LIGHT IN REACH.
--- NOTE | 2025-01-03 16:20 | NUR ---
REPORT GIVEN TO CARLOS REYES TO ASSUME CARE FOLLOWING TRANSFER TO SURGICAL
--- NOTE | 2025-01-03 16:24 | NUR ---
PT TO ROOM 208 FROM PCU 20. HEMODIALYSIS CATHETER PRESENT R ACW. LUNGS DIMINISHED BILATERAL BASES. BELLY DISTENDED. BT POSITIVE. PT DID FIRST SESSION OF HEMODIALYSIS TODAY AND ENDORSED FEELING BETTER. ALERT AND ORIENTED X-4. IV PRESENT LEFT ARM FLUSHED AND PATENT. CHEM BG WNL. WILL CONTINUE TO MONITOR. CP RESOLVED PER PT. RADIAL SITE LEFT ARM WITH TEGADERM COVERING WNL.
--- NOTE | 2025-01-03 17:41 | NUR ---
SHIFT SUMMARY PT RESTING. IV PRESENTLY TO SL. EATING MEAL TRAY. DENIES NEEDS. WILL CONTINUE TO MONITOR.
[2025-01-04 03:54] LABS: ANTINUCLEAR AB (ANA),HEP-2,IGG <1:80 (<1:80)
--- NOTE | 2025-01-04 04:20 | NUR ---
NOC SUMMARY- PT HAD NO NEW ISSUES. PT RESTED QUIETLY WITH CPAP. PT VOIDING VIA PUREWICK DEVICE. PT SPO2 >90%. CALL LIGHT IN REACH.
[2025-01-04 05:10] LABS: Hematocrit 29.7 % (33.0-51.0); Hemoglobin 9.8 g/dL (11.5-16.0)
[2025-01-04 05:29] LABS: Albumin, Blood 2.5 g/dL (3.4-5.0); Anion Gap 6 mmol/L (3-11); Blood Urea Nitrogen 38 mg/dL (8-24); CO2, Blood 33 mmol/L (21-32); Calcium, Blood 8.9 mg/dL (8.5-10.1); Chloride, Blood 97 mmol/L (98-108); Creatinine, Blood 5.50 mg/dL (0.40-1.00); Glucose, Blood 121 mg/dL (70-99); Magnesium, Blood 2.1 mg/dL (1.6-2.4); Phosphorus, Blood 5.9 mg/dL (2.5-4.9); Potassium, Blood 3.9 mmol/L (3.5-5.5); Sodium, Blood 132 mmol/L (136-145)
--- NOTE | 2025-01-04 06:39 | NUR ---
PT DECLINES VITALS AT THIS TIME. PRIMARY RN AWARE.
[2025-01-04 07:18] VITALS: BP 142/57
--- NOTE | 2025-01-04 09:10 | NUR ---
OCC THERAPY IN WITH PT.
[2025-01-04 11:47] LABS: HEPATITIS B SURFACE ANTIBODY <3.10 IU/L
[2025-01-04 13:34] LABS: HBV CORE ANTIBODIES,TOTAL Negative (Negative)
[2025-01-04 15:05] VITALS: BP 160/66
--- NOTE | 2025-01-04 17:19 | NUR ---
SUMMARY NO ACUTE CHANGES T/O SHIFT. PT WORKED WITH THERAPY AND SAT UP IN CHAIR FIRST PART OF SHIFT. HAS BEEN RESTING IN BED T/O AFTERNOON. FAMILY BEDSIDE AT THIS TIME. CALL LIGHT IN REACH.
[2025-01-04 19:02] VITALS: BP 139/54
--- NOTE | 2025-01-04 21:45 | NUR ---
ASSUMED CARE OF PT. PT RESTING IN BED. DENIES NEED.
[2025-01-05] VITALS (15 sets, daily range): BP systolic 100–176; BP diastolic 59–92
[2025-01-05 04:30] LABS: Hematocrit 30.2 % (33.0-51.0); Hemoglobin 10.4 g/dL (11.5-16.0)
--- NOTE | 2025-01-05 05:00 | NUR ---
SUMMARY PT HAS NO ACUTE CHANGES.APPEARED TO SLEEP QUIETLY.
--- NOTE | 2025-01-05 08:51 | NUR ---
PT TO DIAYLSIS AT 0810
[2025-01-05 12:07] LABS: Albumin, Blood 2.8 g/dL (3.4-5.0); Anion Gap 13 mmol/L (3-11); Blood Urea Nitrogen 53 mg/dL (8-24); CO2, Blood 30 mmol/L (21-32); Calcium, Blood 9.3 mg/dL (8.5-10.1); Chloride, Blood 98 mmol/L (98-108); Creatinine, Blood 5.90 mg/dL (0.40-1.00); Glucose, Blood 127 mg/dL (70-99); Magnesium, Blood 2.1 mg/dL (1.6-2.4); Phosphorus, Blood 6.5 mg/dL (2.5-4.9); Potassium, Blood 3.9 mmol/L (3.5-5.5); Sodium, Blood 137 mmol/L (136-145)
--- NOTE | 2025-01-05 12:13 | NUR ---
Pt. is awake and sitting in a chair when she welcomes my visit. Pt. is pleasant but displays evidence of being tired after her dialysis today. Facilitated an update. Pt. verbalized expectations that she would have outpatient dialysis for some time. Prayed with the Pt. Pt. verbalized gratitude for the spiritual care visit.
[2025-01-05] MEDS ORDERED: BUME2 PO (15:33)
[2025-01-05] MEDS ORDERED: GABA100 PO (15:33)
[2025-01-05] MEDS ORDERED: NOVOLOG FL100 UNIT/3 (15:37)
[2025-01-05] MEDS ORDERED: BASAGLAR K100 UNIT/3 SC (15:45)
[2025-01-05] MEDS ORDERED: EUTHYROX175 MCG PO (15:45)
[2025-01-05] MEDS ORDERED: AMLO5 PO (15:47)
[2025-01-05] MEDS ORDERED: ASPI81CH PO (15:47)
[2025-01-05] MEDS ORDERED: CARV6.25 PO (15:48)
[2025-01-05] MEDS ORDERED: HYDRA50 PO (15:49)
[2025-01-05] MEDS ORDERED: CATAPRES0.1 MG PO (15:49)
[2025-01-05] MEDS ORDERED: CLOP75 PO (15:49)
--- NOTE | 2025-01-05 17:00 | NUR ---
SUMMARY NO ACUTE CHANGES THIS SHIFT. PT HAD DIALYSIS THIS AM. GETTING UP TO BSC TO VOID. USES CALL LIGHT APPROPRIATELY. HAD DC ORDERS, FAMILY DISTRESSED, STATING NOT ABLE TO CARE FOR HER AT HOME AT THIS TIME. DC PUT ON HOLD UNTIL TOMORROW WHEN PT WILL EITHER DC HOME OR TO SNF. PT STATING, AT THIS TIME, PLANNING ON DC'ING TO SNF.
[2025-01-05 21:05] LABS: GBM, IGG MULTIPLEX BEAD ASSAY 0 AU/mL (0-19); MYELOPEROXIDASE (MPO) AB,IGG 0 AU/mL (0-19); SERINE PROTEINASE 3 PR3 AB,IGG 0 AU/mL (0-19)
[2025-01-06] VITALS (13 sets, daily range): BP systolic 142–170; BP diastolic 61–89
--- NOTE | 2025-01-06 05:31 | NUR ---
SHIFT SUMMARY NO ACUTE CHANGES OVERNIGHT. S/P R CHEST WALL PERMACATH PLACEMENT. DRESSING C/D/I c SCANT DRIED SANGUINEOUS DRAINAGE. VSS. TOLERATING DIET. VOIDING. AMBULATES USING FWW c SBA. REPORTS PAIN TOLERABLE. ANTICIPATED DISCHARGE TO REHAB TODAY. CALL LIGHT IN REACH, BED IN LOWEST POSITION. WILL REPORT TO DAY RN.
[2025-01-06 05:34] LABS: Hematocrit 31.6 % (33.0-51.0); Hemoglobin 10.4 g/dL (11.5-16.0)
[2025-01-06 06:08] LABS: Albumin, Blood 2.8 g/dL (3.4-5.0); Anion Gap 10 mmol/L (3-11); Blood Urea Nitrogen 30 mg/dL (8-24); CO2, Blood 28 mmol/L (21-32); Calcium, Blood 9.0 mg/dL (8.5-10.1); Chloride, Blood 98 mmol/L (98-108); Creatinine, Blood 4.14 mg/dL (0.40-1.00); Glucose, Blood 134 mg/dL (70-99); Magnesium, Blood 2.0 mg/dL (1.6-2.4); Phosphorus, Blood 4.8 mg/dL (2.5-4.9); Potassium, Blood 3.5 mmol/L (3.5-5.5); Sodium, Blood 132 mmol/L (136-145)
[2025-01-06] MEDS ORDERED: Polyethylene Glycol 3350 17 gm PO ONE (15:00)
[2025-01-06] MEDS ORDERED: Polyethylene Glycol 3350 17 gm PO PRN (15:00)
[2025-01-06 16:42] LABS: ALBUMIN %,URINE 55.6 %; ALPHA-1 %,URINE 6.4 %; ALPHA-2 %,URINE 11.6 %; BETA GLOBULIN %,URINE 13.4 %; GAMMA GLOBULIN %,URINE 13.0 %; HOURS COLLECTED Not Provided hr; PARAPROTEIN %,URINE 0.0 %
--- NOTE | 2025-01-06 16:52 | NUR ---
SHIFT SUMMARY PATIENT IS AOX4, DIALYSIS THIS MORNING. VSS. PATIENT TOLERATING PO INTAKE. SBA FOR TRANSFERS. PATIENT DID NOT REQUIRE INSULIN SLIDING SCALE TODAY. DENIES N/V, SOB, N/T. ABLE TO MAKE NEEDS KNOWN. CALL LIGHT IN REACH.
[2025-01-07 04:41] LABS: Hematocrit 29.9 % (33.0-51.0); Hemoglobin 10.1 g/dL (11.5-16.0)
[2025-01-07 04:57] LABS: Magnesium, Blood 1.8 mg/dL (1.6-2.4)
[2025-01-07 04:58] LABS: Albumin, Blood 2.9 g/dL (3.4-5.0); Anion Gap 8 mmol/L (3-11); Blood Urea Nitrogen 28 mg/dL (8-24); CO2, Blood 30 mmol/L (21-32); Calcium, Blood 9.2 mg/dL (8.5-10.1); Chloride, Blood 98 mmol/L (98-108); Creatinine, Blood 3.92 mg/dL (0.40-1.00); Glucose, Blood 145 mg/dL (70-99); Phosphorus, Blood 4.0 mg/dL (2.5-4.9); Potassium, Blood 3.3 mmol/L (3.5-5.5); Sodium, Blood 133 mmol/L (136-145)
--- NOTE | 2025-01-07 05:05 | NUR ---
SHIFT SUMMARY NO ACUTE CHANGES OVERNIGHT. VSS, CPAP & CONT BIOX IN USE WHILE ASLEEP. S/P R CHEST WALL PERMACATH PLACEMENT. DRESSING C/D/I c SCANT DRIED SANGUINEOUS DRAINAGE. TOLERATING DIET. VOIDING. AMBULATES USING FWW c SBA. REPORTS HEADACHE PAIN TOLERABLE. ANTICIPATED DISCHARGE TO SNF. CALL LIGHT IN REACH, BED IN LOWEST POSITION. WILL REPORT TO DAY RN.
[2025-01-07 06:13] VITALS: BP 140/43
[2025-01-07 07:14] VITALS: BP 145/69
--- NOTE | 2025-01-07 10:40 | NUR ---
Pt. is awake and sitting in a chair when she welcomes my visit. Pt. is pleasant and welcomes my visit. Facilitated an update. Pt. verbalized that it was her expectation that she was only waiting for an open bed at a rehab facility. Considered matters of jimmy, Pt. verbalized "I know I am in God's hands". Faciliiated some further family life review and prayed with the Pt. Pt. verbalized gratitude for the spiritual care visits.
--- NOTE | 2025-01-07 13:45 | NUR ---
PT EXPRESSES CONCERN OVER SMALL AREA OF SWELLING TO ABDOMEN AT HEPARIN INJECTION SITE. SMALL AMT TO PINPOINT SPOTTING TO GOWN. WILL HAVE MD DE LOS SANTOS ON NEXT ROUNDS.
[2025-01-07 14:28] VITALS: BP 128/101
--- NOTE | 2025-01-07 16:00 | NUR ---
ASSUMED CARE OF PATIENT AT THIS TIME.
--- NOTE | 2025-01-07 18:35 | NUR ---
PT HAS BEEN STABLE SINCE THIS RN ASSUMED CARE. DIALYSIS CATH TO [facility] WNL. DIALYSIS TX YESTERDAY. PT BLOOD SUGARS STABLE. EATING AND DRINKING WELL. INDEP TO BATHROOM. DENIES PAIN. IV S.L. MULTIPLE BRUISING SITES AND SPOTTING ON MID ABD HEPARIN SITE. DRESSING PLACED NEEDED. PLAN HH AT DISCHARGE.
[2025-01-07 19:31] VITALS: BP 160/51
[2025-01-08] VITALS (17 sets, daily range): BP systolic 100–178; BP diastolic 60–111
--- NOTE | 2025-01-08 04:13 | NUR ---
SHIFT SUMMARY A/OX4, IND IN ROOM. DENIES PAIN OR SOB. ON ROOM AIR. DIALYSIS CATH TO [facility] CDI. GAUZE DRESSING TO ABD. VSS, NO ACUTE CHANGES AT THIS TIME
[2025-01-08 04:38] LABS: Hematocrit 29.4 % (33.0-51.0); Hemoglobin 9.8 g/dL (11.5-16.0)
[2025-01-08 05:06] LABS: Albumin, Blood 2.9 g/dL (3.4-5.0); Anion Gap 10 mmol/L (3-11); Blood Urea Nitrogen 36 mg/dL (8-24); CO2, Blood 27 mmol/L (21-32); Calcium, Blood 9.0 mg/dL (8.5-10.1); Chloride, Blood 99 mmol/L (98-108); Creatinine, Blood 4.49 mg/dL (0.40-1.00); Glucose, Blood 133 mg/dL (70-99); Magnesium, Blood 1.9 mg/dL (1.6-2.4); Phosphorus, Blood 4.5 mg/dL (2.5-4.9); Potassium, Blood 3.6 mmol/L (3.5-5.5); Sodium, Blood 132 mmol/L (136-145)
[2025-01-08] MEDS ORDERED: MELATONIN5 M1 PO (08:48)
--- NOTE | 2025-01-08 12:43 | NUR ---
DISCHARGE AFTER DIALYSIS & LUNCH, DC'd TO [facility] VIA WC. REPORT CALLED.
== END 2025-01-08 13:30 | DRG 674 ==
LOC: ER 12:20 → SURS 21:24 → ICUE 21:24 → PCU 01-01 18:00 → SURS 01-03 16:20
PROVIDERS: Internal Medicine; Internal Medicine Nephrology; Physician Assistant; ADMIT Student in an Organized Health Care Education/Training Program
PROC: 04793DZ Dilation of Right Renal Artery with Intraluminal Device, Percutaneous Approach (ICD-10-PCS; principal; 2024-12-30)
PROC: B4101ZZ Fluoroscopy of Abdominal Aorta using Low Osmolar Contrast (ICD-10-PCS; 2024-12-30)
PROC: 0JH63XZ Insertion of Tunneled Vascular Access Device into Chest Subcutaneous Tissue and Fascia, Percutaneous Approach (ICD-10-PCS; 2025-01-01)
PROC: 02HV33Z Insertion of Infusion Device into Superior Vena Cava, Percutaneous Approach (ICD-10-PCS; 2025-01-01)
PROC: B5181ZA Fluoroscopy of Superior Vena Cava using Low Osmolar Contrast, Guidance (ICD-10-PCS; 2025-01-01)
PROC: 5A1D70Z Performance of Urinary Filtration, Intermittent, Less than 6 Hours Per Day (ICD-10-PCS; 2025-01-01)
DX: N17.9 Acute kidney failure, unspecified (principal); E87.1 Hypo-osmolality and hyponatremia; I16.1 Hypertensive emergency; Z68.41 Body mass index [BMI] 40.0-44.9, adult; N18.4 Chronic kidney disease, stage 4 (severe); I12.9 Hypertensive chronic kidney disease with stage 1 through stage 4 chronic kidney disease, or unspecified chronic kidney disease; I70.1 Atherosclerosis of renal artery; E78.5 Hyperlipidemia, unspecified; G47.33 Obstructive sleep apnea (adult) (pediatric); E11.22 Type 2 diabetes mellitus with diabetic chronic kidney disease; E66.9 Obesity, unspecified; D63.1 Anemia in chronic kidney disease; R31.29 Other microscopic hematuria; E79.0 Hyperuricemia without signs of inflammatory arthritis and tophaceous disease; E03.9 Hypothyroidism, unspecified; E87.5 Hyperkalemia; R53.1 Weakness; Z99.2 Dependence on renal dialysis; Z79.51 Long term (current) use of inhaled steroids; Z79.899 Other long term (current) drug therapy; Z79.4 Long term (current) use of insulin; Z79.890 Hormone replacement therapy; Z90.49 Acquired absence of other specified parts of digestive tract; Z98.49 Cataract extraction status, unspecified eye; Z90.710 Acquired absence of both cervix and uterus; Z87.891 Personal history of nicotine dependence; Z79.82 Long term (current) use of aspirin; Z91.040 Latex allergy status; Z88.1 Allergy status to other antibiotic agents; Z88.5 Allergy status to narcotic agent; Z99.81 Dependence on supplemental oxygen
CPT/HCPCS: 36415; 71046; 71275; 76770; 76937; 80053; 80061; 80069; 82088; 82530; 82565; 82947; 83036; 83516; 83690; 83735; 83835; 84100; 84156; 84166; 84244; 84439; 84443; 84484; 84550; 84585; 85014; 85018; 85025; 86039; 86334; 86335; 86704; 87340; 93005; 93010; 93306; 93975; 94660; 94762; 96374-59; 97110; 97116; 97161; 97165; 97530; 97535; 99152; 99153; 99285-25; A9270; C1750; C1769; C1876; C1887; C1894; J1644; J1815; J2250; J2405; J3010; J7030; J7040; J7050; Q9967

== ENCOUNTER → 2025-02-09 | Outpatient (CLI) | payer OTHER ==
[~2025-02-09] MED LIST changes: +BASAGLAR K100 UNIT/3 SC; +BUME2 PO; +CARV6.25 PO; +CATAPRES0.1 MG PO; +CLOP75 PO; +EUTHYROX175 MCG PO; +GABA100 PO; +HYDRA50 PO; +LOSARTAN POTAS100 M1 PO; +MELATONIN5 M1 PO; +NOVOLOG FL100 UNIT/3; +POTA10T PO
== END | disposition home or self-care (01) ==
LOC: LAB 09:53 → LAB SHORT 09:53
DX: E03.9 Hypothyroidism, unspecified (principal)
CPT/HCPCS: 84443

== ENCOUNTER → 2025-04-10 | Outpatient (CLI) | payer OTHER ==
[~2025-04-10] MED LIST changes: +Cefpodoxime Pr200 MG PO; +ONDA4ODT MM
== END ==
LOC: LAB SHORT 14:16 → LAB 14:16
DX: E03.9 Hypothyroidism, unspecified (principal)
CPT/HCPCS: 84443

== ENCOUNTER 2025-04-22 13:28 | Emergency (ER) | payer OTHER ==
[~2025-04-22] VITALS: Ht 152.4 cm; Wt 91.6 kg
[~2025-04-22 13:28] MED LIST changes: -Cefpodoxime Pr200 MG PO; -ONDA4ODT MM
[2025-04-22 15:46] LABS: BASOPHILS ABSOLUTE AUTO 0.08 K/mm3 (0.00-0.23); BASOPHILS PERCENT AUTO 1 % (0-2); EOSINOPHILS ABSOLUTE AUTO 0.03 K/mm3 (0.00-0.68); EOSINOPHILS PERCENT AUTO 0 % (0-6); Hematocrit 44.2 % (33.0-51.0); Hemoglobin 14.4 g/dL (11.5-16.0); IMMATURE GRAN ABSOLUTE AUTO 0.13 K/mm3 (0.00-0.10); IMMATURE GRAN PERCENT AUTO 1 % (0-1); LYMPHOCYTES ABSOLUTE AUTO 1.75 K/mm3 (0.84-5.20); LYMPHOCYTES PERCENT AUTO 18 % (21-46); MONOCYTES ABSOLUTE AUTO 0.77 K/mm3 (0.16-1.47); MONOCYTES PERCENT AUTO 8 % (4-13); Mean Corpuscular HGB Conc 32.6 g/dL (31.5-36.5); Mean Corpuscular Volume 85 fL (80-100); NEUTROPHILS ABSOLUTE AUTO 6.96 K/mm3 (1.96-9.15); NEUTROPHILS PERCENT AUTO 72 % (41-73); NRBC ABSOLUTE 0.00 K/mm3 (0.00-0.02); NRBC Auto 0.0 /100 WBC (0.0-0.2); Platelet Count 230 K/mm3 (150-400); RDW Coefficient Variation 14.4 % (11.7-14.2); RDW Standard Deviation 45.2 fL (35.1-46.3)
[2025-04-22 16:01] LABS: Alanine Aminotransfer (ALT/SGP 20.0 U/L (12-78); Albumin, Blood 4.2 g/dL (3.4-5.0); Albumin/Globulin Ratio 1.1 (0.8-1.8); Anion Gap 8.0 mmol/L (3-11); Aspartate Aminotrans (AST/SGOT 13.0 U/L (12-37); Bilirubin, Total 0.4 mg/dL (0.1-1.0); Blood Urea Nitrogen 19.0 mg/dL (8-24); CO2, Blood 35.0 mmol/L (21-32); Calcium, Blood 10.3 mg/dL (8.5-10.1); Chloride, Blood 94.0 mmol/L (98-108); Creatinine, Blood 2.94 mg/dL (0.40-1.00); Globulin, Blood 3.9 g/dL (2.2-4.0); Glucose, Blood 252.0 mg/dL (70-99); Potassium, Blood 3.6 mmol/L (3.5-5.5); Sodium, Blood 133.0 mmol/L (136-145); Total Protein, Blood 8.1 g/dL (6.4-8.2)
[2025-04-22] MEDS ORDERED: NS 1,000 ML IV SCH (17:20)
[2025-04-22] MEDS ORDERED: Ondansetron HCl 2 MG / ML 2ML Vial IV ONE (17:20)
[2025-04-22] MEDS ORDERED: FentaNYL Citrate 50 MCG/ML 2 ML Injection IV ONE (17:20)
[2025-04-22 18:34] LABS: Source, Urine Clean Catch
[2025-04-22 18:37] LABS: Bilirubin, Urine Neg (Neg); Color, Urine Yellow (P-Yellow); Glucose Qualitative, Urine 2+ (Neg); Ketones, Urine Neg (Neg); Leukocyte Esterase, Urine 2+ (Neg); Protein, Urine 4+ (Neg); Specific Gravity, Urine 1.020 (1.003-1.022); Urobilinogen, Urine NORM (Normal)
[2025-04-22 19:09] LABS: Red Blood Cells, Urine 0-2 /hpf (0-2); White Blood Cells, Urine 25-50 /hpf (0-5)
[2025-04-22 19:16] VITALS: BP 193/72
[2025-04-22] MEDS ORDERED: RX Prepack 2 Tabs Ondansetron ODT 4MG UD ONE (19:25)
[2025-04-22] MEDS ORDERED: CefTRIAXone Sodium 1,000 MG in NS 100 ML IV ONE (19:25)
[2025-04-22] MEDS ORDERED: Cefpodoxime Pr200 MG PO (19:41)
[2025-04-22] MEDS ORDERED: ONDA4ODT MM (19:41)
== END 2025-04-22 20:04 | disposition home or self-care (01) ==
LOC: ER 13:28
PROVIDERS: Emergency Medicine; Physician Assistant
DX: N12 Tubulo-interstitial nephritis, not specified as acute or chronic (principal); I12.9 Hypertensive chronic kidney disease with stage 1 through stage 4 chronic kidney disease, or unspecified chronic kidney disease; E11.22 Type 2 diabetes mellitus with diabetic chronic kidney disease; N18.30 Chronic kidney disease, stage 3 unspecified; R74.8 Abnormal levels of other serum enzymes; E03.9 Hypothyroidism, unspecified; G47.33 Obstructive sleep apnea (adult) (pediatric); Z88.5 Allergy status to narcotic agent; Z87.891 Personal history of nicotine dependence; Z88.6 Allergy status to analgesic agent; Z88.1 Allergy status to other antibiotic agents; Z91.040 Latex allergy status; Z79.84 Long term (current) use of oral hypoglycemic drugs; Z79.4 Long term (current) use of insulin; Z79.890 Hormone replacement therapy; Z79.02 Long term (current) use of antithrombotics/antiplatelets; Z79.899 Other long term (current) drug therapy
CPT/HCPCS: 74176; 80053; 81001; 83690; 85025; 96374; 96375; 99284-25; A9270; J0696; J2405; J3010; J7030

== ENCOUNTER 2025-06-11 11:51 | Observation (INO) | payer OTHER ==
[~2025-06-11] VITALS: Ht 152.4 cm; Wt 94.8 kg
[~2025-06-11 11:51] MED LIST changes: +Cefpodoxime Pr200 MG PO; +ONDA4ODT MM
[2025-06-11] MEDS ORDERED: FLU VACC TS2025(65UP)/MF59C/PF 45 MCG/0.5 ML SYRINGE IM SCH (14:15)
[2025-06-11 16:03] VITALS: BP 139/105
[2025-06-11 16:13] LABS: Alanine Aminotransfer (ALT/SGP 23.0 U/L (12-78); Albumin, Blood 4.3 g/dL (3.4-5.0); Albumin/Globulin Ratio 1.2 (0.8-1.8); Anion Gap 11.0 mmol/L (3-11); Aspartate Aminotrans (AST/SGOT 14.0 U/L (12-37); Bilirubin, Total 0.5 mg/dL (0.1-1.0); Blood Urea Nitrogen 33.0 mg/dL (8-24); CO2, Blood 32.0 mmol/L (21-32); Calcium, Blood 10.6 mg/dL (8.5-10.1); Chloride, Blood 94.0 mmol/L (98-108); Creatinine, Blood 4.63 mg/dL (0.40-1.00); Globulin, Blood 3.6 g/dL (2.2-4.0); Glucose, Blood 143.0 mg/dL (70-99); Potassium, Blood 3.5 mmol/L (3.5-5.5); Sodium, Blood 133.0 mmol/L (136-145); Total Protein, Blood 7.9 g/dL (6.4-8.2)
[2025-06-11] MEDS ORDERED: Midazolam HCl 1MG / ML 2ML Vial ONE (16:45)
[2025-06-11] MEDS ORDERED: NS 500 ML IV ONE ×2 (16:45→16:47)
[2025-06-11] MEDS ORDERED: FentaNYL Citrate 50 MCG/ML 2 ML Injection ONE (16:45)
--- NOTE | 2025-06-11 16:52 | NUR ---
NOTE PATIENT REQUESTED THAT SHE CONTACT FAMILY AND WE DO NOT. SHE IS A&O4, ABLE TO MAKE HER OWN DECISION.
[2025-06-11] MEDS ORDERED: Heparin Sodium 10,000 Units/ML 1ML MDV ONE (17:24)
[2025-06-11] MEDS ORDERED: Insulin Regular 100 UNIT/ML 10ML Vial SC SCH (18:00)
--- NOTE | 2025-06-11 18:50 | NUR ---
NOTE 4X4 AND PRESSURE TAPE APPLIED, MANUAL PRESSURE HELD FOR 10 MINUTES
--- NOTE | 2025-06-11 18:52 | NUR ---
NOTE DR REGALADO CALLED ABOUT SITE BLEEDING. INSTRUCTED TO DO PRESSURE DRESSING AND HOLD PRESSURE. PATIENT HAD TWO DRESSING CHANGES DUE TO BLEEDING
--- NOTE | 2025-06-11 19:34 | NUR ---
END OF SHIFT NOTE PATIENT RESTING IN CHAIR, A&O4, CALL LIGHT IN REACH. PATIENT LEFT FOR SURGERY ABOUT 1700 AND RETURNED ABOUT 1745 WITHOUT COMPLAINTS. PATIENT HAD BLEEDING FROM DRESSING SITE, PRESSURE WAS APPLIED, DRESSING WAS CHANGED DUE TO BLEEDING THROUGH, TWICE. CHARGE NURSE ASSISTED. ICU ASSISTED WITH PRESSURE DRESSING, DR REGALADO CALLED ABOUT BLEEDING. PRESSURE DRESSING DONE, MANUAL PRESSURE APPLIED, DRESSING CHECK 5 MINUTES LATER, GAUZE DRY, 10 MINUTES LATER GAUZE HAD SOME BLOOD, BEDSIDE REPORT WAS BEING GIVEN, TWO NURSES VISUALIZED DRESSING AND BLEEDING. PATIENT DENIED PAIN OR COMPLAINTS. WATER AND CRACKERS GIVEN, PATIENT TOLERATED WELL. NO OTHER CONCERNS FOR THIS SHIFT.
[2025-06-11 20:09] VITALS: BP 136/60
[2025-06-11] MEDS ORDERED: Heparin Sodium,Porcine 5,000 UNIT/0.5 ML SDV SC SCH (21:00)
[2025-06-12] VITALS (14 sets, daily range): BP systolic 104–173; BP diastolic 50–97
[2025-06-12 05:18] LABS: Hematocrit 33.2 % (33.0-51.0); Hemoglobin 11.2 g/dL (11.5-16.0); Mean Corpuscular HGB Conc 33.7 g/dL (31.5-36.5); Mean Corpuscular Volume 85 fL (80-100); NRBC ABSOLUTE 0.00 K/mm3 (0.00-0.02); NRBC Auto 0.0 /100 WBC (0.0-0.2); RDW Coefficient Variation 15.0 % (11.7-14.2); RDW Standard Deviation 45.0 fL (35.1-46.3)
[2025-06-12 05:23] LABS: Platelet Count 201 K/mm3 (150-400)
[2025-06-12 05:30] LABS: Alanine Aminotransfer (ALT/SGP 21.0 U/L (12-78); Albumin, Blood 3.5 g/dL (3.4-5.0); Albumin/Globulin Ratio 1.2 (0.8-1.8); Anion Gap 10.0 mmol/L (3-11); Aspartate Aminotrans (AST/SGOT 14.0 U/L (12-37); Bilirubin, Total 0.3 mg/dL (0.1-1.0); Blood Urea Nitrogen 37.0 mg/dL (8-24); CO2, Blood 30.0 mmol/L (21-32); Calcium, Blood 9.4 mg/dL (8.5-10.1); Chloride, Blood 95.0 mmol/L (98-108); Creatinine, Blood 4.91 mg/dL (0.40-1.00); Globulin, Blood 3.0 g/dL (2.2-4.0); Glucose, Blood 184.0 mg/dL (70-99); Potassium, Blood 3.2 mmol/L (3.5-5.5); Sodium, Blood 132.0 mmol/L (136-145); Total Protein, Blood 6.5 g/dL (6.4-8.2)
[2025-06-12 05:32] LABS: BASOPHILS ABSOLUTE MAN 0.00 K/mm3 (0.00-0.23); BASOPHILS PERCENT MAN 0 % (0-2); EOSINOPHILS ABSOLUTE MAN 0.26 K/mm3 (0.00-0.68); EOSINOPHILS PERCENT MAN 3 % (0-6); LYMPHOCYTES ABSOLUTE MAN 2.27 K/mm3 (0.84-5.20); LYMPHOCYTES PERCENT MAN 26 % (21-46); METAMYELOCYTE ABSOLUTE MAN 0.08 K/mm3 (0.00-0.00); METAMYELOCYTE PERCENT MAN 1 % (0-0); MONOCYTES ABSOLUTE MAN 0.17 K/mm3 (0.16-1.47); MONOCYTES PERCENT MAN 2 % (4-13); MYELOCYTE ABSOLUTE MAN 0.17 K/mm3 (0.00-0.00); MYELOCYTE PERCENT MAN 2 % (0-0); NEUTROPHILS ABSOLUTE MAN 5.78 K/mm3 (1.96-9.15); SEG NEUTROPHILS PERCENT MAN 66 % (41-73)
[2025-06-12] MEDS ORDERED: Levothyroxine Sodium 0.175 MG TAB PO SCH (06:00)
[2025-06-12] MEDS ORDERED: Darbepoetin (Pharmacy Consult) SC SCH (06:50)
[2025-06-12] MEDS ORDERED: Insulin Regular 100 UNIT/ML 10ML Vial SC SCH (07:30)
[2025-06-12] MEDS ORDERED: Insulin Human Lispro 100 Units/ML 3ML Syringe SC SCH (07:30)
--- NOTE | 2025-06-12 07:56 | NUR ---
SHIFT SUMMARY PATIENT A&OX4, ABLE TO MAKE NEEDS KNOWN. PATIENTS OOZING OF BLOOD DID NOT GET UNDER CONTROL UNTIL 0ISH AFTER JING DRESSING PLACED AND SEVERAL OTHER DRESSINGS WERE REPLACED. HEPARIN WAS HELD DUE TO THE ACTIVE BLEED WITH DOCTORS AGREEANCE. PATIENT DID NOT SLEEP WELL. PATIENT HAS BEEN INDEPENDENT IN THE ROOM. PATIENT HAS DENIED ANY SYMPTOMS OF HYPOTENSION. CPAP INTIATED, ABLE TO MAKE NEEDS KNOWN, BED AT LOWEST LEVEL, CALL LIGHT WITHIN REACH.
[2025-06-12] MEDS ORDERED: Calcium Acetate 667 MG Gel Cap PO SCH (08:30)
[2025-06-12] MEDS ORDERED: Vitamin B Cmplx/Vit C/Folic Ac 1 Tab PO SCH (09:00)
[2025-06-12] MEDS ORDERED: CALC.25 PO (12:19)
[2025-06-12] MEDS ORDERED: NEPHRO VITAMIN0.8 MG PO (12:51)
[2025-06-12] MEDS ORDERED: Calcium Acetat667 MG PO (12:51)
[2025-06-12] MEDS ORDERED: SEVEC800 PO (12:52)
--- NOTE | 2025-06-12 13:22 | NUR ---
DISCHARGE NOTE: WENT OVER DISCHARGE WITH THE PATIENT. SHE GOT HERSELF DRESSED AND COLLECTED BELONGINGS. PATIENT WAS WHEELED DOWN BY METAL STAMPING MACHINE OPERATOR. NO SIGNS OR SYMPTOMS OF DISTRESS WITH DISCHARGE.
[2025-06-29] MEDS ORDERED: EUTHYROX175 MCG PO (11:39)
[2025-06-29] MEDS ORDERED: NOVOLOG100 UNIT/2 (11:41)
[2025-06-29] MEDS ORDERED: PRAVASTATIN SOD40 MG PO (11:41)
[2025-06-30] MEDS ORDERED: POTA10T PO (13:29)
[2025-06-30] MEDS ORDERED: CLOP75 PO (13:30)
== END 2025-06-12 13:20 | disposition home or self-care (01) ==
LOC: ER 11:51 → MEDS 11:52 → ER 12:42 → MEDS 15:54 → ENPENDDIS 06-12 11:42 → MEDS 06-12 13:20
PROVIDERS: Physician Assistant; ADMIT Hospitalist
DX: T82.49XA Other complication of vascular dialysis catheter, initial encounter (principal); Y71.8 Miscellaneous cardiovascular devices associated with adverse incidents, not elsewhere classified; I12.0 Hypertensive chronic kidney disease with stage 5 chronic kidney disease or end stage renal disease; E11.22 Type 2 diabetes mellitus with diabetic chronic kidney disease; N18.6 End stage renal disease; E87.70 Fluid overload, unspecified; R60.0 Localized edema; E87.1 Hypo-osmolality and hyponatremia; E87.6 Hypokalemia; D64.9 Anemia, unspecified; G47.33 Obstructive sleep apnea (adult) (pediatric); E03.9 Hypothyroidism, unspecified; E78.5 Hyperlipidemia, unspecified; Z66 Do not resuscitate; Z79.4 Long term (current) use of insulin; Z79.890 Hormone replacement therapy; Z79.899 Other long term (current) drug therapy; Z91.040 Latex allergy status; Z88.5 Allergy status to narcotic agent; Z88.8 Allergy status to other drugs, medicaments and biological substances; Z91.048 Other nonmedicinal substance allergy status
CPT/HCPCS: 36415; 36581; 36902; 80053; 82947; 84439; 84443; 84481; 85025; 94660; 94762; 96372; 99152; 99284; A9270; C1725; C1750; C1769; G0257; G0378; J1644; J2250; J3010; J7040; Q9967

== ENCOUNTER → 2025-06-22 | Outpatient (CLI) | payer OTHER ==
[~2025-06-22] MED LIST changes: +Calcium Acetat667 MG PO; +NEPHRO VITAMIN0.8 MG PO; +SEVEC800 PO
== END | disposition home or self-care (01) ==
LOC: LAB SHORT 09:54 → LAB 09:54
DX: E03.9 Hypothyroidism, unspecified (principal)
CPT/HCPCS: 84443